=== PATIENT | female | born 1965 | race Caucasian/White ===

== ENCOUNTER → 2018-05-23 11:47 | Outpatient (CLI) | payer BC ==
[2014-06-17 11:59] VITALS: BMI 47.3
[~2018-05-23 11:47] MED LIST: ABILIFY10 MG PO; BUTISOL SODIUM PO; FLOVENT DI50 MCG/DIS INH; FLUTICASONE PRO16 GM NS; HUMALOG MI100 UNITS/; LANTUS INSULIN10 ML; MAXZIDE 75/501 TAB PO; MOBIC7.5 MG PO; NEURONTIN250 MG/5 M; NEURONTIN600 MG PO; PRILOSEC20 MG PO; ROBAXIN500 MG; TOPROL XL200 MG PO; TOPROL XL50 MG PO; ULTRAM50 MG PO; WELLBUTRIN75 MG PO; ZESTRIL20 MG PO
== END | disposition home or self-care (01) ==
LOC: D.LABREF 11:47
DX: N39.0 Urinary tract infection, site not specified (principal); R33.9 Retention of urine, unspecified

== ENCOUNTER → 2018-09-02 18:41 | Outpatient (CLI) | payer BC ==
[2014-06-17 11:59] VITALS: BMI 47.3
== END | disposition home or self-care (01) ==
LOC: D.LABREF 18:41
PROVIDERS: ATTEND Urology
DX: R31.9 Hematuria, unspecified (principal); D72.829 Elevated white blood cell count, unspecified

== ENCOUNTER → 2018-10-18 12:58 | Outpatient (CLI) | payer BC ==
[2014-06-17 11:59] VITALS: BMI 47.3
[~2018-10-18 12:58] MED LIST changes: +ALBUTEROL SULF8.5 GM INH; +BASAGLAR K100 UNIT/1 SC; +BUPROPION XL300 MG PO; +FLOMAX0.4 MG PO; +FUROSEMIDE40 MG PO; +LYRICA150 MG PO; +NAPROSYN500 MG PO; +NEXIUM40 MG PO; +NOVOLIN 70/30 110 ML SC; +PERCOCET 5-3251 TAB PO; +TRAZODONE HCL150 MG PO; +[UNRECOGNIZED DRUG - OTHER] PO
== END | disposition home or self-care (01) ==
LOC: D.CT 12:58
PROVIDERS: ATTEND Family Medicine Adult Medicine
DX: R10.9 Unspecified abdominal pain (principal)

== ENCOUNTER → 2018-10-23 11:10 | Outpatient (CLI) | payer BC ==
[2014-06-17 11:59] VITALS: BMI 47.3
[~2018-10-23 11:10] MED LIST changes: -ALBUTEROL SULF8.5 GM INH; -BASAGLAR K100 UNIT/1 SC; -BUPROPION XL300 MG PO; -FLOMAX0.4 MG PO; -FUROSEMIDE40 MG PO; -LYRICA150 MG PO; -NAPROSYN500 MG PO; -NEXIUM40 MG PO; -NOVOLIN 70/30 110 ML SC; -PERCOCET 5-3251 TAB PO; -TRAZODONE HCL150 MG PO; -[UNRECOGNIZED DRUG - OTHER] PO
[2018-10-23 15:55] LABS: BASOPHILS 0.2 % (0-2); EOSINOPHILS 2.3 % (0-7); HEMATOCRIT 33.3 % (36.0-48.0); HEMOGLOBIN 9.9 g/dL (12-16); LYMPHOCYTES 40.5 % (15-50); MCH 22.5 pg (26.0-34.0); MCHC 29.7 g/dL (31.0-37.0); MCV 75.7 fL (80.0-100.0); MEAN PLATELET VOLUME 10.6 fL (7.4-10.4); MONOCYTES 4.9 % (2-11); NEUTROPHILS 52.1 % (40-80); PLATELET COUNT 267 10x3/uL (130-400); RDW 21.2 % (11.5-14.5); WBC 5.7 10x3/uL (4.8-10.8)
[2018-10-23 16:03] LABS: APTT 27.3 SECONDS (22.8-39.4); INR 1.07 (0.85-1.17); PROTIME 13.4 SECONDS (11.6-15.0)
[2018-10-23 16:10] LABS: % SATURATION 23 % (15-55); IRON 103 ug/dl (35-150); TOTAL IRON BIND CAPACITY 436 ug/dl (260-445); UNSAT IRON BIND CAPACITY 333 ug/dl (150-375)
[2018-10-23 16:14] LABS: ALBUMIN 3.1 g/dL (3.4-5.0); ANION GAP 11.2 mmol/L (8-16); BILIRUBIN - DIRECT 0.08 mg/dL (0.00-0.30); BILIRUBIN - INDIRECT 0.03 mg/dL (0.00-1.00); BILIRUBIN - TOTAL 0.11 mg/dL (0.2-1.3); CALCIUM 8.9 mg/dL (8.5-10.1); CARBON DIOXIDE 29.9 mmol/L (21.0-32.0); CHOL - HDL RATIO 2.8 ratio (2.3-4.1); CREATININE - SERUM 1.2 mg/dL (0.6-1.3); LDL-HDL RATIO 1.3 ratio (1.5-3.5); POTASSIUM - SERUM 3.1 mmol/L (3.5-5.1); PROTEIN - SERUM 7.2 g/dL (6.4-8.2)
[2018-10-24 07:18] LABS: ANA REFLEX - DIRECT Negative (Negative); HAPTOGLOBIN 199 mg/dL (34-200)
[2018-10-24 09:17] LABS: HEPATITIS C ANTIBODY <0.1 S/CO RAT (0.0-0.9)
[2018-10-24 12:15] LABS: ALPHA FETOPROTEIN -(TUMOR MRK) 1.9 ng/mL (0.0-8.3)
--- NOTE | 2018-10-25 09:40 | ST ---
PATIENT:CAMILA STOLL MEDICAL RECORD: [id number] SEX: F LOCATION:[facility] ORDER #: ADMISSION DATE: 10/23/18 AGE OF PATIENT: 52 REFERRING PHYSICIAN: INTERPRETING PHYSICIAN: MARTHA MORAN MD DATE OF SERVICE: 10/23/2018 PROCEDURE: Nuclear stress test. INDICATIONS: Angina, abnormal ECG, hypertension, diabetes, family history of coronary artery disease. She was exercised on standard Lexiscan protocol with 32 mCi of sestamibi injected at peak stress, 11 mCi were used previously for rest images. FINDINGS: Gated SPECT reveals preserved ejection fraction at 72% with good wall motioning and thickening and brightening throughout all segments. SPECT imaging: Cardiolite was used as a myocardial perfusion agent. There are definite reversible changes anteriorly and apically. This includes the basal, mid, apical, anterior segments as well as the apex itself. The degree of reversibility is moderate. The amount of myocardium involved is moderate. OVERALL IMPRESSION: This is an intermediate risk abnormal nuclear stress test including reversibility in the anterior segments as well as the apex with preserved ejection fraction at 72%. In this patient with ongoing symptomatology, the current scan does suggest presence of hemodynamic ally significant coronary artery disease. We will proceed with coronary angiography as a followup study. TRANSINT:[id number] Voice Confirmation ID: [id number] DOCUMENT ID: [id number] MARTHA MORAN MD at 0940 CC: ISABEL AWAN MD [id number] DICTATION DATE: 10/23/18 1607 ENTRY LEVEL MANAGER: 10/24/18 1005 DEP CLI 10/23/18 [facility] [address] [id number]
[2018-10-26 16:09] LABS: MITOCHONDRIAL ANTIBODY <20.0 Units (0.0-20.0); SMOOTH MUSCLE ABS (ACTIN) 10 Units (0-19)
== END | disposition home or self-care (01) ==
LOC: D.HCCARDIO 11:10
PROVIDERS: ATTEND Internal Medicine Cardiovascular Disease
DX: R10.84 Generalized abdominal pain (principal); R19.4 Change in bowel habit; R94.5 Abnormal results of liver function studies

== ENCOUNTER → 2018-10-30 08:03 | Outpatient (CLI) | payer BC ==
[2014-06-17 11:59] VITALS: BMI 47.3
[~2018-10-30 08:03] MED LIST changes: +ALBUTEROL SULF8.5 GM INH; +BASAGLAR K100 UNIT/1 SC; +BUPROPION XL300 MG PO; +FLOMAX0.4 MG PO; +FUROSEMIDE40 MG PO; +LYRICA150 MG PO; +NEXIUM40 MG PO; +NOVOLIN 70/30 110 ML SC; +TRAZODONE HCL150 MG PO; +[UNRECOGNIZED DRUG - OTHER] PO
== END | disposition home or self-care (01) ==
LOC: D.RAD 10-28 08:00
PROVIDERS: ATTEND Internal Medicine Gastroenterology
DX: R13.10 Dysphagia, unspecified (principal)

== ENCOUNTER 2018-11-07 05:59 | Outpatient (CLI) | payer BC ==
[~2018-11-07] VITALS: Ht 172.7 cm; Wt 120.0 kg
--- NOTE | ~2018-11-07 | HEMODYNAMI ---
PATIENT:CAMILA STOLL MEDICAL RECORD: [id number] : 67 LOCATION:[facility] ADMISSION DATE: 11/07/18 Generatedon:11/07/20188:08 Patient name: CAMILA STOLL Patient #: [id number] SSN: D OB: 1965 Date of study: 11/07/2018 Page: Of Hemodynamic Procedure Report Patient Data Patient Demographics Procedure consent was obtained First Name: CAMILA Gender: Female Last Name: DODIE : 1965 Middle Initial: LOURDES Age: 53 year(s) Patient #: [id number] Race: Unknown Additional ID: [id number] Contact details [address]: [address] [place] [address] State: [place] City: [place] Zip code: [address] Past Medical History Allergies Allergen Reaction Date Comments Reported Other allergy 11/07/2018 CEVALIN, IBUPROFEN, PCN Admission Admission Data Admission Date: 11/07/2018 Admission Time: 5:59 Lab Results Lab Result Date: 11/07/2018 Lab Result Time: 0:00 Biochemistry Name Units Result Min Max BUN mg/dl 14 --(--*-)-- 7 18 Creatinine mg/dl 1.3 --(---*)-- 0.6 1.3 Procedure Procedure Types Cath Procedure Diagnostic Procedure [facility] w/Coronaries Procedure Description Procedure Date Procedure Date: 11/07/2018 Procedure Start Time: 8:01 Procedure End Time: 8:07 Procedure Staff Name Function Rafael Villeda MD Performing Physician Osman Chu RT Monitor Radha Devi RT Scrub Brenda Felton RN Nurse Anupama Ferguson RN Potash Flaker Procedure Data Cath Procedure Fluoroscopy Diagnostic fluoroscopy Total fluoroscopy Time: 1.5 time: 1.5 min min Diagnostic fluoroscopy Total fluoroscopy dose: 645 dose: 645 mGy mGy Contrast Material Contrast Material Type Amount (ml) Isovue 300 36 Entry Location Entry Primary Successful Side Size Upsize Upsize Entry Closure Falk ccessful Closure Location (Fr) 1 (Fr) 2 (Fr) Remarks Device Remarks Radial Right 6 Fr Mechanical artery Short Compression Diagnostic catheters Device Type Used For End Catheter Placement DIAGNOSTIC Lancaster 110cm 5 LV Angiography Fr catheter ([id number]) Procedure Medications Medication Administration Route Dosage 0.9% NaCl I.V. 100 ml/hr Oxygen etCO2 Nasal cannula 2 l/min Lidocaine 2% added to field 20 Heparin Flush Bag added to field 2 bags (1000units/500ml NS) Radial Cocktail added to field 1 syringe (Verapamil 2mg/Nitro 400mcg/Heparin 1500units) Versed I.V. 2 mg Fentanyl I.V. 50 mcg Hemodynamics Rest Heart Rate: 58 (bpm) Pressure Samples Time Site Value (mmHg) Purpose Heart Use Rate(bpm) 8:01 LV 89/4,19 EDP 58 Gradients Valve Time Site Site Mean SEP/DFP Peak To Heart Use 1 2 (mmHg) (sec/min) Peak Rate (mmHg) (bpm) Aortic 8:02 LV AO 66 Snapshots Pre Cath Intra NCS Post Cath Vital Signs Time Heart Resp SPO2 etCO2 NIBP (mmHg) Rhythm Pain Sedation Rate (ipm) (%) (mmHg) Status Level (bpm) 7:45:40 60 33 100 41.4 124/72(100) NSR 0 (11) 10(A) , No pain 7:50:39 63 12 99 40 Measuring NSR 0 (11) 10(A) , No pain 7:57:00 57 12 99 45.2 Measuring SB 0 (11) 10(A) , No pain 7:57:17 56 12 97 42.9 114/61(78) SB 0 (11) 10(A) , No pain 8:01:49 57 12 97 41.4 105/56(67) SB 0 (11) 9(A) , No pain 8:06:18 57 12 96 41.5 113/57(80) SB 0 (11) 10(A) , No pain Medications Time Medication Route Dose Verified Delivered Reason Notes Ef fectiveness by by 7:49:07 0.9% NaCl I.V. 100 Rafael Brenda used for ml/hr Ronal Felton advertising sales executive 7:49:15 Oxygen etCO2 2 l/min Rafael Brenda used for Nasal Ronal Felton procedure cannula RN 7:49:21 Lidocaine 2% added 20ml Rafael Rafael for local to vial Ronal Villeda MD anesthetic field 7:49:25 Heparin Flush added 2 bags Rafael Rafael used for Bag to Ronal Villeda MD procedure (1000units/500ml field NS) 7:49:31 Radial Cocktail added 1 Rafael Rafael used for (Verapamil to syringe Ronal iVlleda MD procedure 2mg/Nitro field 400mcg/Heparin 1500units) 7:58:45 Versed I.V. 2 mg Rafael Brenda for Ronal Felton sedation RN 7:58:54 Fentanyl I.V. 50 mcg Rafael Brenda for Ronal Felton sedation ship harbor pilot Log Time Note 7:30:23 Anupama Ferguson RN sent for patient. Start room use. 7:34:13 Signed procedure consent form obtained from patient. 7:34:15 Diagnostic Cath status Elective 7:34:16 Time tracking: Regular hours (M-F 7:00 - 5:00) 7:34:19 Plan of Care:Hemodynamics will remain stable., Cardiac rhythm will remain stable., Comfort level will be maintained., Respiratory function will remain adequate., Patient/ family verbilizes understanding of procedure., Procedure tolerated without complication., Recovers from procedure without complications.. 7:35:21 H&P Date Dictated: 10/16/2018 Within 30 days and on chart., H&P Addendum completed by physician on day of procedure. (MUST COMPLETE FOR ALL OUTPATIENTS). 7:35:44 Patient allergic to Other allergyCEVALIN, IBUPROFEN, PCN 7:38:22 Patient received from Pre/Post Procedure Room to CCL 1 Alert and oriented. Tansferred to table in Supine position. 7:38:23 Warm blankets applied, and tram hugger turned on for patient comfort. 7:38:24 Correct patient and procedure confirmed by team. 7:38:25 ECG and BP/O2 sat monitors applied to patient. 7:44:13 Vital chart was started 7:49:07 0.9% NaCl 100 ml/hr I.V. was administered by Brenda Felton RN; used for procedure; 7:49:15 Oxygen 2 l/min etCO2 Nasal cannula was administered by Brenda Felton RN; used for procedure; 7:49:21 Lidocaine 2% 20ml vial added to field was administered by Rafael Villeda MD; for local anesthetic; 7:49:25 Heparin Flush Bag (1000units/500ml NS) 2 bags added to field was administered by Rafael Villeda MD; used for procedure; 7:49:31 Radial Cocktail (Verapamil 2mg/Nitro 400mcg/Heparin 1500units) 1 syringe added to field was administered by Rafael Villeda MD; used for procedure; 7:51:49 Baseline sample Acquired. 7:51:52 Rhythm: sinus rhythm 7:51:53 Pre-procedure instructions explained to patient. 7:51:54 Pre-op teaching completed and patient verbalized understanding. 7:51:56 Family in waiting room. 7:51:58 Patient NPO since Midnight. 7:52:01 Is the patient allergic to Iodine/contrast media? No. 7:52:08 Is patient on blood thinner?No 7:52:14 Patient diabetic? No. 7:52:17 ----Pre-sedation anethsthesia assessment.---- 7:52:20 Previous problem with sedation/anesthesia? No ? 7:52:21 Snore? Yes 7:52:24 Sleep apnea? Yes 7:52:26 Deviated septum? No 7:52:27 Opens mouth fully? Yes 7:52:29 Sticks out tongue? Yes 7:52:34 Airway obstruction? Yes ASTHMA 7:52:39 Dentures? No ? 7:52:42 Pre procedure: right dorsailis pedis pulse 2+ Normal; easily identifiable; not easily obliterated 7:52:45 Modified Ralph's test Ulnar < 7 seconds 7:52:48 Patient pain scale 0/10 ?. 7:52:57 IV patent on arrival in right antecubital with 0.9% NaCl at [facility]. 7:58:11 Lab Result : BUN 14 mg/dl 7:58:11 Lab Result : Creatinine 1.3 mg/dl 7:58:14 Lab results completed and on chart. 7:58:17 Right Radial & Right Groin area was prepped with chlora-prep and draped in sterile fashion 7:58:18 Alarms reviewed by R. N. 7:58:19 Sharps counted by scrub and verified by R.NHernando 7:58:21 Physician arrived 7:58:21 --------ALL STOP TIME OUT------ 7:58:22 Final Timeout: patient, procedure, and site verified with staff and physician. All members of the team are in agreement. 7:58:24 Right Radial & Right Groin site verified by team. 7:58:29 Maximum allowable Isovue 300 dose 300ml. Physician notified. (300ml for normal creatinines. For patients with creatinine of 1.7 or higher multiply weight(kg) x 5 divided by creatinine.) 7:58:35 Fire Safety Assessment: A--An alcohol-based skin anteseptic being used preoperatively., C--Open oxygen or nitrous oxide is being used., D--An ESU, laser, or fiber-optic light is being used. 7:58:38 Physical assessment completed. ASA score P 2 - A patient with mild systemic disease as per Rafael Villeda MD. 7:58:44 Sedation plan: IV Moderate Sedation Medication:Versed, Fentanyl 7:58:45 Versed 2 mg I.V. was administered by Brenda Felton RN; for sedation; 7:58:52 Use device set Radial Dx or PCI 7:58:54 Fentanyl 50 mcg I.V. was administered by Brenda Felton RN; for sedation; 7:58:54 ACIST Syringe (95501) opened to sterile field. 7:58:58 Medline Cath Pack ([id number]) opened to sterile field. 7:58:59 Bag Decanter (2002) opened to sterile field. 7:59:10 EMERALD Guide Wire (971-660) opened to sterile field. 7:59:13 ACIST Hand Control (60084) opened to sterile field. 7:59:14 ACIST Manifold (70520) opened to sterile field. 7:59:14 Tegaderm 4 x 4 (1626W) opened to sterile field. 7:59:16 MBrace Wrist Support ([id number]) opened to sterile field. 7:59:17 NEEDLE Cook 21G 4cm Radial (B00792) opened to sterile field. 7:59:21 TR BAND Standard ([id number]) opened to sterile field. 7:59:23 SHEATH 6FR Slender (71-0276) opened to sterile field. 8:00:37 A DIAGNOSTIC Lancaster 110cm 5 Fr catheter (007492) was advanced over the wire and used for LV Angiography. 8:00:40 Zero performed for pressure channel P1 8:00:43 Zero performed for pressure channel P1 8:00:45 Zero performed for pressure channel P1 8:01:00 Procedure started. 8:01:00 Full Disclosure recording started 8:01:23 Local anesthetic to right radial artery with Lidocaine 2% by Rafael Villeda MD.INITIAL ACCESS ONLY 8:01:30 A 6 Fr Short sheath was inserted into the Right Radial artery 8:01:50 LV angiography performed. 8:01:52 LV gram done using WEBBER 8:01:54 LV hemodynamics recorded. 8:02:05 EF : 55 % 8:02:56 LCA angiography performed. 8:03:55 RCA angiography performed. 8:04:17 Catheter removed. 8:04:33 Sheath removed intact; hemostasis achieved with Mechanical Compression to the Right Radial artery. 8:04:35 Procedure ended.(Physican Out) 8:04:56 Fluoroscopy time 01.50 minutes. 8:05:01 Fluoroscopy dose: 645 mGy 8:05:01 Flurop Dose total: 645 8:05:06 Contrast amount:Isovue 300 36ml. 8:05:07 Sharps counted by scrub and verified by R.N. 8:05:26 TR band inflated with 10cc of air. 8:05:28 Insertion/operative site no bleeding no hematoma. 8:05:32 Post-op/insertion site Right Radial artery dressed using a Bandaid. 8:05:49 Post right radial artery:stable 8:05:51 Post Procedure Pulses reassessed and unchanged 8:05:53 Post procedure: right dorsailis pedis pulse 1+ Palpable, but thready & weak; easily obliterated. 8:05:56 Post procedure rhythm: sinus rhythm 8:05:58 Post procedure instruction explained to patient.Patient verbalizes understanding. 8:06:00 Procedure and supply charges have been captured, reviewed, submitted and are correct. 8:06:27 Vital chart was stopped 8:06:42 See physician's report for complete and final results. 8:07:05 Report given to Pre/Post Procedure Room. 8:07:11 Patient transfered to Pre/Post Procedure Room with Stretcher. 8:07:21 Procedure ended. 8:07:21 Full Disclosure recording stopped 8:07:25 End room use (Document Last) Device Usage Item Name Manufacture Quantity Catalog Hospital Part Current Minimal Lot# / Number Charge Number Stock Stock Serial# Code ACIST Acist 1 77421 754550 382380 903846 20 Syringe Medical (25809) Systems Inc Medline Medline 1 [id number] 035041 76523 897120 5 Cath Pack ([id number]) Bag Microtek 1 2001S 852075 69974 284226 5 Decanter Medical Inc. () EMERALD Cardinal 1 502-455 586692 097935 044558 5 Guide Wire Health (502-455) ACIST Hand Acist 1 58915 854762 041925 615933 5 Control Medical (09683) Systems Inc ACIST Acist 1 81552 385173 458795 183932 5 Manifold Medical (14985) Systems Inc Tegaderm 4 3M 1 1626W 928514 429013 571000 5 x 4 (1626W) MBrace Advanced 1 140-0250-00 176686 82599 712007 5 Wrist Vascular Support Dynamics ([id number]) NEEDLE [employer] Medical 1 [id number] 894497 987817 607157 5 21G 4cm Radial (U89395) TR BAND Terumo 1 [id number] 314799 994131 995491 40 Standard ([id number]) SHEATH 6FR Terumo 1 [id number] 992510 430562 551341 5 Slender (80-1060) DIAGNOSTIC Terumo 1 40-9293 544243 450461 840893 5 Lancaster 110cm 5 Fr catheter (459768) Signature Audit Urich Stage Time Signature Unsigned Intra-Procedure 11/07/2018 Osman Chu RT(Carmel) 8:08:35 AM Signatures Monitor : Osman Chu RT Signature : Date : Time : [facility] [address] [place] [address]
[~2018-11-07 05:59] MED LIST changes: -ALBUTEROL SULF8.5 GM INH; -BASAGLAR K100 UNIT/1 SC; -BUPROPION XL300 MG PO; -FLOMAX0.4 MG PO; -FUROSEMIDE40 MG PO; -LYRICA150 MG PO; -NEXIUM40 MG PO; -NOVOLIN 70/30 110 ML SC; -TRAZODONE HCL150 MG PO; -[UNRECOGNIZED DRUG - OTHER] PO
[2018-11-07] MEDS ORDERED: BUPROPION XL300 MG PO (06:32)
[2018-11-07] MEDS ORDERED: [UNRECOGNIZED DRUG - OTHER] PO (06:33)
[2018-11-07] MEDS ORDERED: ALBUTEROL SULF8.5 GM INH (06:33)
[2018-11-07] MEDS ORDERED: FUROSEMIDE40 MG PO (06:34)
[2018-11-07] MEDS ORDERED: NOVOLIN 70/30 110 ML SC (06:34)
[2018-11-07] MEDS ORDERED: BASAGLAR K100 UNIT/1 SC (06:35)
[2018-11-07] MEDS ORDERED: TRAZODONE HCL150 MG PO (06:35)
[2018-11-07] MEDS ORDERED: LYRICA150 MG PO (06:35)
[2018-11-07] MEDS ORDERED: FLOMAX0.4 MG PO (06:36)
[2018-11-07] MEDS ORDERED: NEXIUM40 MG PO (06:37)
[2018-11-07 06:39] VITALS: BP 114/60; Ht 172.7 cm; Wt 120.0 kg
[2018-11-07 07:19] LABS: ANION GAP 10.4 mmol/L (8-16); CALCIUM 9.3 mg/dL (8.5-10.1); CARBON DIOXIDE 29.8 mmol/L (21.0-32.0); CREATININE - SERUM 1.3 mg/dL (0.6-1.3); POTASSIUM - SERUM 3.2 mmol/L (3.5-5.1)
[2018-11-07 07:51] LABS: BASOPHILS 0.2 % (0-2); EOSINOPHILS 5.3 % (0-7); HEMATOCRIT 34.4 % (36.0-48.0); HEMOGLOBIN 10.6 g/dL (12-16); IMMATURE GRANULOCYTES 0.5 % (0-5); LYMPHOCYTES 32.6 % (15-50); MCH 23.6 pg (26.0-34.0); MCHC 30.8 g/dL (31.0-37.0); MCV 76.6 fL (80.0-100.0); MEAN PLATELET VOLUME 10.8 fL (7.4-10.4); MONOCYTES 6.4 % (2-11); RBC 4.49 10x6/uL (4.00-5.40); RDW 22.1 % (11.5-14.5); WBC 6.4 10x3/uL (4.8-10.8)
[2018-11-07 07:57] LABS: PLATELET COUNT 212 10x3/uL (130-400)
--- NOTE | 2018-11-07 08:15 | NUR ---
PT ARRIVED BY STRETCHER. PLACED ON MONITORS. ASSESSMENT COMPLETED.
--- NOTE | 2018-11-07 08:30 | NUR ---
RIGHT WRIST TR BAND IN PLACE. NO BLEEDING/HEMATOMA NOTED. VSS. CALL LIGHT WITHIN REACH.
--- NOTE | 2018-11-07 09:00 | NUR ---
VSS. PT RESTING COMFORTABLY. EATING SANDWICH AND DRINK. DENIES NAUSEA. RIGHT WRIST TR BAND IN PLACE. NO BLEEDING/HEMATOMA NOTED.
--- NOTE | 2018-11-07 09:20 | NUR ---
3cc OF AIR REMOVED FROM TR BAND. NO BLEEDING/HEMATOMA NOTED. VSS.
--- NOTE | 2018-11-07 09:35 | NUR ---
4cc OF AIR REMOVED FROM TR BAND. PT TOLERATED WELL. NO BLEEDING/HEMATOMA NOTED. VSS. FAMILY AT BEDSIDE.
--- NOTE | 2018-11-07 10:00 | NUR ---
2cc OF AIR REMOVED FROM TR BAND. PT TOLERATED WELL. NO S/S OF HEMATOMA NOTED.
--- NOTE | 2018-11-07 10:10 | NUR ---
RIGHT AC PIV D/C'D WITH CATH TIP INTACT. PT TOLERATED WELL.
--- NOTE | 2018-11-07 10:15 | NUR ---
PT UP TO GET DRESSED. NO ASSISTANCE NEEDED.
--- NOTE | 2018-11-07 10:25 | NUR ---
DISCUSSED DISCHARGE INSTRUCTIONS WITH PT AND PT'S FAMILY. THEY VOICED UNDERSTANDING. TR BAND REMOVED AND DRESSING APPLIED. NO BLEEDING/HEMATOMA NOTED.
--- NOTE | 2018-11-07 10:35 | NUR ---
PT TAKEN OUT TO VEHICLE BY WHEELCHAIR. NO S/S OF DISTRESS NOTED. ALL BELONGINGS AND PAPERWORK IN HAND. RIGHT WRIST DRESSING C/D/I. NO S/S OF HEMATOMA NOTED.
== END 2018-11-07 10:35 | disposition home or self-care (01) ==
LOC: D.CATH 05:59
PROVIDERS: ATTEND Internal Medicine Cardiovascular Disease
DX: I20.9 Angina pectoris, unspecified (principal); Z01.812 Encounter for preprocedural laboratory examination

== ENCOUNTER 2018-12-11 00:53 | Observation (INO) | payer BC ==
[~2018-12-11] VITALS: Ht 172.7 cm; Wt 120.9 kg
[~2018-12-11 00:53] MED LIST changes: +ALBUTEROL SULF8.5 GM INH; +BASAGLAR K100 UNIT/1 SC; +BUPROPION XL300 MG PO; +FLOMAX0.4 MG PO; +FUROSEMIDE40 MG PO; +LYRICA150 MG PO; +NEXIUM40 MG PO; +NOVOLIN 70/30 110 ML SC; +TRAZODONE HCL150 MG PO; +[UNRECOGNIZED DRUG - OTHER] PO
[2018-12-11] MEDS ORDERED: NAPROSYN500 MG PO (01:06)
[2018-12-11] MEDS ORDERED: PERCOCET 5-3251 TAB PO (01:07)
[2018-12-11 01:56] LABS: BASOPHILS 0.1 % (0-2); EOSINOPHILS 3.4 % (0-7); HEMATOCRIT 34.7 % (36.0-48.0); IMMATURE GRANULOCYTES 0.2 % (0-5); LYMPHOCYTES 26.2 % (15-50); MCH 25.3 pg (26.0-34.0); MCHC 31.7 g/dL (31.0-37.0); MEAN PLATELET VOLUME 10.5 fL (7.4-10.4); MONOCYTES 5.2 % (2-11); NEUTROPHILS 64.9 % (40-80); RBC 4.34 10x6/uL (4.00-5.40); RDW 19.7 % (11.5-14.5)
[2018-12-11 01:57] LABS: PLATELET COUNT 168 10x3/uL (130-400)
[2018-12-11 02:12] LABS: KETONE - SERUM NEGATIVE (NEGATIVE)
[2018-12-11 02:20] LABS: ALBUMIN 2.9 g/dL (3.4-5.0); ALKALINE PHOSPHATASE 99 U/L (46-116); ALT (SGPT) 30 U/L (10-68); BILIRUBIN - TOTAL 0.17 mg/dL (0.2-1.3); CALC OSMOLALITY 289 mosm/kg (275-300); CALCIUM 8.6 mg/dL (8.5-10.1); CARBON DIOXIDE 27.8 mmol/L (21.0-32.0); CHLORIDE - SERUM 109 mmol/L (98-107); CREATININE - SERUM 1.3 mg/dL (0.6-1.3); POTASSIUM - SERUM 3.2 mmol/L (3.5-5.1); PROTEIN - SERUM 6.7 g/dL (6.4-8.2); SODIUM 144 mmol/L (136-145); UREA NITROGEN 17 mg/dL (7-18); eGFR NON AFRICAN AMERICAN 46 mL/min (90-120)
[2018-12-11 02:27] LABS: GLUCOSE 121 mg/dL (74-106)
--- NOTE | 2018-12-11 04:00 | NUR ---
PATIENT RECIEVED FROM ER VIA WHEELCHAIR ESCORTED BY STAFF AND FAMILY. PATIENT HAS NO COMPLAINTS AT THIS TIME. NO DISTRESS NOTED. FSBS 155.
[2018-12-11 04:34] VITALS: BP 159/75; BMI 40.5
--- NOTE | 2018-12-11 06:23 | NUR ---
PATIENT'S FSBS 109.
--- NOTE | 2018-12-11 07:30 | NUR ---
PT RESTING, EYES CLOSED. RR EVEN AND UNLABORED. WILL CONTINUE TO MONITOR.
--- NOTE | 2018-12-11 10:31 | NUR ---
I have reviewed this patient and I concur with the Shift Assessment completed by the Licensed Practical Nurse today this shift.
[2018-12-11 13:08] VITALS: Ht 172.7 cm; Wt 120.9 kg
[2018-12-11] MEDS ORDERED: BASAGLAR K100 UNIT/1 SC (13:50)
--- NOTE | 2018-12-11 15:07 | NUR ---
D/C INSTRUCTIONS REVIEWED AND SIGNED BY PT. VERBALIZES UNDERSTANDING. NO FURTHER QUESTIONS NOTED. BOTH IV D/C WITH CATHETER TIP INTACT. ALL BELONGINGS SENT WITH PT. LEFT VIA WHEELCHAIR TO PERSONAL VEHICHLE.
--- NOTE | 2018-12-12 08:13 | MORECARE ---
CASE MANAGEMENT DISCHARGE SUMMARY PATIENT: CAMILA STOLL UNIT: [id number] ADM DATE: 12/11/18 AGE: 53 : 67 SEX: F ROOM/BED: D.2130 AUTHOR: GELA LYN PHYSICIAN: REFERRING PHYSICIAN: ALBA MADSEN MD DATE OF SERVICE: 12/12/18 Discharge Plan Patient Name: CAMILA STOLL Facility: [facility]:[place] : 1965 Planned Disposition: Home Anticipated Discharge Date: 12/11/18 Discharge Date: 12/11/2018 Expected LOS: 1 Initial Reviewer: [email or web address] Initial Review Date: 12/12/2018 Generated: 12/12/18 9:13 am Patient Name: CAMILA STOLL Page 38517 at 0813 All edits/amendments must be made on the electronic document DICTATION DATE: 12/12/18812 CORONER TECHNICIAN: BRONSON 12/12/18812 RPT#: [id number] DC DATE:12/11/18 STATUS: DIS IN [facility] [address] [place] [address] END OF REPORT
== END 2018-12-11 15:54 | disposition home or self-care (01) ==
LOC: D.ER 00:53 → D.M2 02:56 → OBSVTIME 02:56 → D.M2 15:54
PROVIDERS: Family Medicine; ADMIT Internal Medicine Nephrology; ATTEND Internal Medicine Nephrology
DX: E11.649 Type 2 diabetes mellitus with hypoglycemia without coma (principal); G47.33 Obstructive sleep apnea (adult) (pediatric); D64.9 Anemia, unspecified; I10 Essential (primary) hypertension; F32.9 Major depressive disorder, single episode, unspecified; I34.1 Nonrheumatic mitral (valve) prolapse

== ENCOUNTER 2019-08-01 08:36 | Outpatient (CLI) | payer MEDICAID ==
[~2019-08-01] VITALS: Ht 172.7 cm; Wt 105.0 kg
[~2019-08-01 08:36] MED LIST changes: +NAPROSYN500 MG PO; +PERCOCET 5-3251 TAB PO
[2019-08-01 09:08] LABS: BASOPHILS 0.3 % (0-2); EOSINOPHILS 5.6 % (0-7); HEMATOCRIT 41.3 % (36.0-48.0); HEMOGLOBIN 13.1 g/dL (12-16); IMMATURE GRANULOCYTES 0.1 % (0-5); LYMPHOCYTES 30.6 % (15-50); MCH 28.8 pg (26.0-34.0); MCHC 31.7 g/dL (31.0-37.0); MCV 90.8 fL (80.0-100.0); MEAN PLATELET VOLUME 10.9 fL (7.4-10.4); MONOCYTES 5.9 % (2-11); NEUTROPHILS 57.5 % (40-80); RBC 4.55 10x6/uL (4.00-5.40); RDW 13.5 % (11.5-14.5); WBC 7.8 10x3/uL (4.8-10.8)
[2019-08-01 09:22] LABS: PLATELET COUNT 242 10x3/uL (130-400)
[2019-08-01 09:27] LABS: INR 1.03 (0.85-1.17); PROTIME 13.4 SECONDS (11.6-15.0)
[2019-08-01 09:28] LABS: ANION GAP 10.7 mmol/L (8-16); CALCIUM 9.2 mg/dL (8.5-10.1); CARBON DIOXIDE 29.1 mmol/L (21.0-32.0); POTASSIUM - SERUM 3.8 mmol/L (3.5-5.1)
[2019-08-01 10:34] VITALS: Ht 172.7 cm; Wt 105.0 kg
--- NOTE | 2019-08-01 12:53 | NUR ---
1220-REC'D FROM INTERVENTIONAL RADIOLOGY. AWAKE AND ALERT. VSS. DENIES PAIN. DRESSING IS CDI. REVIEWED DISCHARGE CRITERIA. CL IN EASY REACH. SPOUSE AT BEDSIDE.
[2019-08-01 14:05] LABS: ALBUMIN 3.3 g/dL (3.4-5.0); BILIRUBIN - DIRECT 0.07 mg/dL (0.00-0.30); BILIRUBIN - INDIRECT 0.17 mg/dL (0.00-1.00); BILIRUBIN - TOTAL 0.24 mg/dL (0.2-1.3); PROTEIN - SERUM 6.9 g/dL (6.4-8.2)
== END 2019-08-01 16:20 | disposition home or self-care (01) ==
LOC: D.SP 08:36 → D.LAB 09:15 → D.SP 09:15 → D.US 09:30 → D.CT 11:00 → D.SP 16:20
PROVIDERS: Radiology Diagnostic Radiology; ATTEND Internal Medicine Gastroenterology
DX: K76.0 Fatty (change of) liver, not elsewhere classified (principal); D50.9 Iron deficiency anemia, unspecified; R94.5 Abnormal results of liver function studies; R19.5 Other fecal abnormalities

== ENCOUNTER → 2019-08-06 07:58 | Outpatient (CLI) | payer MEDICAID ==
[2019-08-01 10:34] VITALS: BMI 35.2
[2019-08-06 08:44] LABS: ANION GAP 12.2 mmol/L (8-16); CARBON DIOXIDE 28.5 mmol/L (21.0-32.0); CREATININE - SERUM 1.1 mg/dL (0.6-1.3); POTASSIUM - SERUM 3.7 mmol/L (3.5-5.1)
== END | disposition home or self-care (01) ==
LOC: D.CT 07:58
PROVIDERS: ATTEND Internal Medicine Gastroenterology
DX: I81 Portal vein thrombosis (principal)

== ENCOUNTER → 2020-02-02 09:27 | Outpatient (CLI) | payer MEDICAID ==
[2019-08-01 10:34] VITALS: BMI 35.2
[2020-02-02 09:57] LABS: ALBUMIN 3.3 g/dL (3.4-5.0); BILIRUBIN - DIRECT 0.06 mg/dL (0.00-0.30); BILIRUBIN - INDIRECT 0.2 mg/dL (0.00-1.00); BILIRUBIN - TOTAL 0.26 mg/dL (0.2-1.3); PROTEIN - SERUM 7.1 g/dL (6.4-8.2)
== END | disposition home or self-care (01) ==
LOC: D.LAB 09:27 → D.US 10:00
PROVIDERS: ATTEND Internal Medicine Gastroenterology
DX: K76.0 Fatty (change of) liver, not elsewhere classified (principal)